=== PATIENT | male | born 1940 | race Caucasian/White ===

== ENCOUNTER 2019-12-24 07:02 | Outpatient (CLI) | payer MEDICARE, OTHER ==
[2019-12-24 10:51] LABS: Hemoglobin 14.2 g/dL (14.0-18.0); Mean Corpuscular HGB CONC 32.2 g/dL (32.0-36.0); Mean Corpuscular Hemoglobin 30.2 pg (27.0-31.0); Mean Corpuscular Volume 93.9 fL (78.0-98.0); Platelet Count 291 thou/uL (130-400); RBC Distribution Width 11.7 % (11.5-14.5); Red Blood Cell (RBC) Count 4.71 mill/uL (4.70-6.10); White Blood Cell (WBC) Count 8.6 thou/uL (4.8-10.8)
[2019-12-24 11:01] LABS: Bacteria/HPF None Seen HPF (None Seen); Bilirubin Negative (Negative); Blood, Urine Negative (Negative); Clarity Clear (Clear); Glucose, Urine (Dipstick) Normal (Negative); Ketone, Urine Negative (Negative); Leukocyte Negative Leu/uL (Negative); Nitrite Negative (Negative); Protein, Urine (Dipstick) Negative (Neg-Trace); RBC/HPF 0-3 HPF (0-3); Specific Gravity, Urine 1.006 (1.002-1.036); Squamous Epithelial None Seen HPF (0-3); Urobilinogen Normal mg/dL (Less than 2); WBC/HPF 0-3 HPF (0-3); pH, Urine 6.5 (5.0-9.0)
[2019-12-24 11:10] LABS: Anion Gap 14 mmol/L (10-20); BUN (Urea Nitrogen) 11 mg/dL (8.4-25.7); Calc. Creatinine Clearance 0 mL/min (70-130); Calcium 9.4 mg/dL (7.8-10.44); Carbon Dioxide 27 mmol/L (23-31); Chloride 104 mmol/L (98-107); Estimated GFR-MDRD 80; Glucose 92 mg/dL (83-110); Potassium 4.8 mmol/L (3.5-5.1); Sodium 140 mmol/L (136-145)
[2019-12-24 16:41] LABS: SARS-CoV-2 MS2 Positive; SARS-CoV-2 N Gene Negative; SARS-CoV-2 S Gene Negative; SARS-CoV-2 by NAA Not Detected (NotDetected); SARS-CoV-2 orf1ab Negative
--- NOTE | 2019-12-29 20:12 | EKG ---
Test Reason : Blood Pressure : / mmHG Vent. Rate : 061 BPM Atrial Rate : 061 BPM P-R Int : 204 ms QRS Dur : 108 ms QT Int : 400 ms P-R-T Axes : 040 -27 031 degrees QTc Int : 402 ms Normal sinus rhythm Incomplete right bundle branch block Borderline ECG No previous ECGs available Confirmed by DR. Kisha THURMAN MD ([id number]) on 12/29/2019 8:12:35 PM Referred By: TANI Confirmed By:DR. Kisha THURMAN MD
== END 2019-12-24 07:03 | disposition home or self-care (01) ==
LOC: LABBT 07:02
PROVIDERS: ATTEND Urology
DX: Z01.818 Encounter for other preprocedural examination (principal); Z20.828 Contact with and (suspected) exposure to other viral communicable diseases; N40.0 Benign prostatic hyperplasia without lower urinary tract symptoms
CPT/HCPCS: 80048; 81001; 85027; 87086; 93005; U0003; 87635; 93010

== ENCOUNTER 2019-12-28 08:13 | Observation (INO) | payer MEDICARE ==
[2019-12-23 09:42] VITALS: BMI 38.0
[2019-12-28] MEDS ORDERED: Levofloxacin 500 mg/D5W 100 ml Premix Bag ONE (08:54)
[2019-12-28] MEDS ORDERED: Fentanyl 100 MCG/2 ML VIAL ONE ×2 (09:22→12:03)
[2019-12-28] MEDS ORDERED: Lidocaine 1% PF 5 ML VIAL ONE (09:36)
[2019-12-28] MEDS ORDERED: Ondansetron PF 4 MG/2 ML Vial ONE (09:36)
[2019-12-28] MEDS ORDERED: PROPOFOL 200 MG/20 ML VIAL ONE (09:36)
[2019-12-28] MEDS ORDERED: diphenhydrAMINE 50 MG/ML VIAL IVP PRN (14:50)
[2019-12-28] MEDS ORDERED: HYDROcodone/Acetaminophen 5/325 mg Tablet PO PRN (14:50)
[2019-12-28] MEDS ORDERED: Hyoscyamine Sulfate SL 0.125 mg Tablet SL PRN (14:50)
[2019-12-28] MEDS ORDERED: Ketorolac Tromethamine 30 MG/ML VIAL IVP PRN (14:50)
[2019-12-28] MEDS ORDERED: Zolpidem Tartrate 5 MG TAB PO PRN (14:50)
[2019-12-28] MEDS ORDERED: Morphine 2 MG/ML VIAL SLOW IVP PRN (14:50)
[2019-12-28] MEDS ORDERED: Ondansetron PF 4 MG/2 ML Vial IVP PRN (14:50)
[2019-12-28] MEDS ORDERED: hydrALAZINE 20 MG/ML VIAL SLOW IVP PRN (14:50)
[2019-12-28] MEDS ORDERED: Sodium Chloride 0.9% 10 ML ONE (15:13)
--- NOTE | 2019-12-28 15:56 | OP ---
DATE OF PROCEDURE: 12/28/2019 PREOPERATIVE DIAGNOSIS: Enlarged prostate with lower urinary tract symptoms. POSTOPERATIVE DIAGNOSIS: Enlarged prostate with lower urinary tract symptoms. PROCEDURE PERFORMED: Transurethral resection of prostate. ANESTHESIA: General. COMPLICATIONS: None. BLOOD LOSS: Minimal. SPECIMEN: Prostate chips. DESCRIPTION OF PROCEDURE: After informed consent, the patient was taken to the operating room, transferred to the table under his own power. Anesthesia was established. A time-out was performed showing correct patient, site, and procedure. Preoperative antibiotics were administered. He was prepped and draped in the lithotomy position. The rigid resectoscope was advanced through the urethra noting normal course and caliber of the urethra into the bladder. I did note minimally obstructing lateral lobes of the prostate with a very obstructing median lobe. The bladder was systematically examined noting moderate trabeculation with several small early diverticula. There were no mucosal abnormalities. Both ureters were normal in appearance. I began by resecting the median lobe from the bladder neck back to the verumontanum. I then resected the left lobe followed by the right lobe and finally anterior obstructing tissue. Meticulous hemostasis was achieved. The [employer] evacuator was used to remove all the prostate chips, which were passed off as specimen. The bladder was then re-examined noting no injury to the ureters and no active bleeding in the prostatic fossa. The scope was then removed and a 22-[place] 3-way Ken catheter was placed with 30 mL instilled in the balloon. This was irrigated noting no obstruction and then continuous irrigation connected. He was awoken from anesthesia and transferred back to his hospital bed and taken to PACU in stable condition, where he will be admitted overnight. Job ID: [id number]
[2019-12-28] MEDS: Sodium Chloride 0.9% 1,000 ML IV SCH ×2 (18:45→20:14)
[2019-12-28] MEDS: Docusate 100 MG CAP PO SCH (20:09)
[2019-12-28] MEDS ORDERED: Amlodipine 5 mg/Benazepril 20 mg CAP PO SCH (21:00)
[2019-12-29] MEDS: Docusate 100 MG CAP PO SCH (09:12)
[2019-12-29 11:31] VITALS: BP 157/79; TEMP 98
== END 2019-12-29 12:24 | disposition home or self-care (01) ==
LOC: SDC 08:13 → SJJU 11:51 → SDC 14:51 → SJJU 14:51
PROVIDERS: ADMIT Urology; ATTEND Urology
PROC: 0VT08ZZ Resection of Prostate, Via Natural or Artificial Opening Endoscopic (ICD-10-PCS; principal; 2019-12-28)
DX: N40.1 Benign prostatic hyperplasia with lower urinary tract symptoms (principal); N52.9 Male erectile dysfunction, unspecified; I10 Essential (primary) hypertension; Z79.899 Other long term (current) drug therapy; Z88.0 Allergy status to penicillin
CPT/HCPCS: 88305; 96360; 96361; G0378; J1956; J2405; J2704; J3010